=== PATIENT | female | born 1955 | race Caucasian/White ===

== ENCOUNTER 2023-05-11 09:01 | Outpatient (CLI) | payer MEDICARE, BC, SELFPAY | END 2023-05-11 09:02 | disposition home or self-care (01) | LOC: INJ CL 09:03 | PROVIDERS: PCP Physician Assistant; Visit Provider Family Medicine | DX: M16.11 Unilateral primary osteoarthritis, right hip (principal); M25.511 Pain in right shoulder | CPT/HCPCS: 20610; 77002; J0702; Q9966 ==